=== PATIENT | female | born 1990 | race Caucasian/White ===

== ENCOUNTER 2024-01-13 19:04 | Inpatient (IN) | payer BC, SELFPAY ==
[2024-01-13] VITALS (9 sets, daily range): BP systolic 96–124; BP diastolic 50–81; PULSE 70–81; BMI 28.3; BMI 29.0
[2024-01-13 11:20] LABS: % Basophils 0.3 % (0-2); % Eosinophils 0.2 % (0-6); % Immature Granulocytes 0.9 % (0-0.5); % Monocytes 6.4 % (1.7-9.3); % Neutrophils 86.2 % (42.2-75.2); Absolute Basophils 0.1 10^3/uL (0-0.2); Absolute Immature Granulocytes 0.2 10^3/uL (0-0.05); Absolute Lymphocytes 1.5 10^3/uL (1.2-3.4); Absolute Monocytes 1.6 10^3/uL (0.1-0.6); Absolute Neutrophils 21.8 10^3/uL (1.4-6.5); Hematocrit 43.2 % (37.0-47.0); Hemoglobin 14.8 g/dL (12.0-16.0); Mean Corp Hgb Conc. 34.3 g/dL (33.0-37.0); Mean Corpuscular Volume 90.4 fL (81.0-99.0); Mean Platelet Volume 9.6 fL (7.4-10.4); Nucleated Red Blood Cells % 0 %; Platelet Count 330 10^3/uL (130-400); Red Blood Cell Count 4.78 10^6/uL (4.20-5.40); Red Cell Dist. Width 12.5 % (11.5-14.5); White Blood Cell Count 25.3 10^3/uL (4.8-10.8)
[2024-01-13 11:30] LABS: ALT (SGPT) 39 U/L (0-35); AST (SGOT) 51 U/L (14-36); Albumin 4.8 g/dl (3.5-5.0); Alkaline Phosphatase 57 U/L (38-126); Blood Urea Nitrogen 29 mg/dl (7-17); Calcium 9.3 mg/dl (8.4-10.2); Carbon Dioxide 23 mmol/L (22-30); Chloride 110 mmol/L (98-107); Estimated Creatinine Clearance 55 ml/min; Glucose 102 mg/dl (70-99); Potassium 4.3 mmol/L (3.5-5.1); Sodium 141 mmol/L (135-145); Total Bilirubin 0.7 mg/dl (0.2-1.3); Total Protein 7.3 g/dl (6.3-8.2); eGFR > 60.00
--- NOTE | 2024-01-13 12:02 | ED.GENMED ---
History of Present Illness
<Winifred Armas PA-C - Last Filed: 01/13/24 18:32>
General
Chief Complaint: Fainting Sensation
Source: patient
Exam Limitations: none
Time Seen by Provider: 01/13/24 11:29
Nursing documentation reviewed up to this point in time: agreed with
Travel History
Have you had any contact with someone who has COVID-19?: No
Do you have any symptoms of coronavirus? Fever > 100 degrees, chills, cough, shortness of breath, sore throat, loss of taste or smell, muscle aches, or headache?: No
History of Present Illness
History of Present Illness:
pt is a 33 y/o F with h/o anxiety on wellbutrin, cut back from 300 to 250 recently
was running 10th mile of half marathon and started feeling lightheaded, weak, faint, and got on the ground on all fours, she felt funny and was sweaty and ultimately then woke up in the ambulance;
pt has never passed out before
has seen cards about 4 years ago because mom had bypass at aghe 58
she had normal echo
pt is a distance runner
ate breakfast before the race, was hydrated with water and electrolytes
but she did use 3 'run gum' tabs which total 450 mg of caffeine and she has never used 3 before
pt did not hit her head
pt currently is feeling nauseated and having lower back pain
she never had chest pain, no pleuritic pain, abdominal pain
no h/o dvt/pe
no ocps
Past History
<Winifred Armas PA-C - Last Filed: 01/13/24 18:32>
Past History
ED Past Medical History: Psychiatric
ED Past Surgical History: Cholecystectomy
Social History
Tobacco: Non-smoker
Alcohol: None
Drug: None
Personal:
Living: with family
Family History
Family History: CAD
Review of Systems
<Winifred Armas PA-C - Last Filed: 01/13/24 18:32>
Review of Systems
Allergies reviewed?: Yes
All Other Systems: Not applicable
Phy Exam
<Winifred Armas PA-C - Last Filed: 01/13/24 18:32>
Physical Exam
Physical Exam:
GENERAL: Alert , in no apparent distress
EYE: pupils equal and reactive
NECK: Supple
ENT: o/p clr, mmm.
CARDIAC: Regular rate and rhythm .
LUNGS: Clear breath sounds bilaterally, no acute respiratory distress, no wheezes/rales/rhonchi
ABDOMEN: Soft, without focal tenderness, no r/g, no cvat, normal bowel sounds
NEUROLOGICAL: Alert and oriented, no focal neuro deficits
SKIN: Warm and dry, skin intact.
MUSCULOSKELETAL: No edema, well perfused. neg misael's sign
PSYCH: Normal and appropriate interaction.
Course
<Winifred Armas PA-C - Last Filed: 01/13/24 18:32>
Orders/Labs/Results
Orders:
Orders
01/13/24 11:04
Electrocardiogram (*1) Urgent
Reason for Study: Chest Pain
EKG- Treatment ONCE
01/13/24 11:12
Complete Blood Count/With Diff Urgent
Comprehensive Metabolic Panel Urgent
Creatine Phosphokinase Urgent
HCG, Serum Qualitative Screen Urgent
Troponin I Urgent
01/13/24 11:57
0.9% Sodium Chloride 1000 ml [Nss] 1,000 ml IV BOLUS
01/13/24 11:58
Add On- LAB Urgent
Tests Added?: cpk
Add On- LAB Urgent
Tests Added?: hcg qual serum
01/13/24 12:13
D-Dimer Urgent
01/13/24 12:37
Orthostatic VS- Treatment ONCE
01/13/24 12:53
CT Chest Pe Study Urgent
Comment:
Reason For Exam: elevated d dimer, syncope, eleavted
01/13/24 13:33
0.9% Sodium Chloride 1000 ml [Nss] 1,000 ml IV BOLUS
01/13/24 Dinner
Cholesterol Lowering
At Your Request: Full Participation
Cholesterol Lowering: Sodium, 2 Gram
01/13/24 15:20
Complete Blood Count/With Diff Urgent
Comprehensive Metabolic Panel Urgent
Glycohemoglobin (HgbA1c) Urgent
Troponin I Urgent
01/13/24 16:49
Electrocardiogram (*1) Urgent
Reason for Study: Palpitations
EKG- Treatment ONCE
01/13/24 18:19
Admit/Transfer Patient As Directed
Co-Sign Provider:
Level of Care: Inpatient admission
Assign to:: Telemetry
Physician / Group: Hospitalist
Diagnosis: Syncopal episode, elevated troponin
Reason for Telemetry: Syncope
Date to Stop Telemetry: 01/15/24
Time to Stop Telemetry: 11:00
Reason for Hospitalization: Syncopal episode, elevated troponin
Expected length of stay greater than two midnights?: Yes
ELOS- Estimated Length of Stay in days: 2
I certify the patient meets the requirements for IP care: Yes
01/13/24 18:20
Code Status As Directed
Resuscitation Status: Full Code
01/13/24 19:31
Electrocardiogram (*1) Q6H
Reason for Study: Chest Pain
Comment: at admission and Q3H for total of 3, to be done with each troponin
0.9% Sodium Chloride 1000 ml [Nss] 1,000 ml IV 150 mls/hr
01/13/24 19:31
Echo 2D MMode Color/Doppler Routine
Reason for Study: chest pain
Activity As Directed
Activity Level: Ambulate
INT (Intravenous Needle Therapy) As Directed
Comment: maintain peripheral IV access
Intake/ Output As Directed
Frequency: Per unit guidelines
Pneumatic Compression Sleeves As Directed
Type: Knee high
Vital Signs As Directed
Frequency: q4h
Weight As Directed
Frequency: Daily
DX Deep Vein Thrombosis Video Routine
01/13/24 19:53
Troponin I Q3H
Comment: at admit & Q3H for 3 total including ED draws, obtain ECG with each level
01/14/24 01:31
Electrocardiogram (*1) Q6H
Reason for Study: Chest Pain
Comment: at admission and Q3H for total of 3, to be done with each troponin
01/14/24 05:25
Complete Blood Count/No Diff IN AM
Comprehensive Metabolic Panel IN AM
01/14/24 07:31
Electrocardiogram (*1) Q6H
Reason for Study: Chest Pain
Comment: at admission and Q3H for total of 3, to be done with each troponin
01/14/24 08:00
Bupropion(24Hr)Extended Releas [WELLBUTRIN XL (24 hour extended release)] 300 mg PO DAILY
Famotidine [Pepcid] 40 mg PO DAILY
01/15/24 11:00
DC Protocol for Telemetry ONCE
Abnormal Lab Results
01/13/24 01/13/24 01/13/24
11:12 12:13 15:20
WBC 25.3 H 10^3/uL 18.6 H 10^3/uL
(4.8-10.8) (4.8-10.8)
RBC 3.96 L 10^6/uL
(4.20-5.40)
Hct 35.6 L %
(37.0-47.0)
MCH 31.6 H pg
(27.0-31.0)
Abs Immat Gran (auto) 0.2 H 10^3/uL 0.1 H 10^3/uL
(0-0.05) (0-0.05)
Absolute Neuts (auto) 21.8 H 10^3/uL 16.3 H 10^3/uL
(1.4-6.5) (1.4-6.5)
Absolute Monos (auto) 1.6 H 10^3/uL 0.7 H 10^3/uL
(0.1-0.6) (0.1-0.6)
Immature Gran % 0.9 H %
(0-0.5)
Neutrophils % 86.2 H % 87.6 H %
(42.2-75.2) (42.2-75.2)
Lymphocytes % 6.0 L % 7.9 L %
(20.5-51.1) (20.5-51.1)
D-Dimer 0.60 H ug/mlFEU
(0.00-0.50)
Chloride 110 H mmol/L 113 H mmol/L
(98-107) (98-107)
Carbon Dioxide 21 L mmol/L
(22-30)
BUN 29 H mg/dl 25 H mg/dl
(7-17) (7-17)
Creatinine 1.2 H mg/dL
(0.6-1.0)
Glucose 102 H mg/dl 107 H mg/dl
(70-99) (70-99)
Calcium 8.1 L mg/dl
(8.4-10.2)
AST 51 H U/L 92 H U/L
(14-36) (14-36)
ALT 39 H U/L 73 H U/L
(0-35) (0-35)
Troponin I 0.120 H* ng/ml 0.135 H* ng/ml
Total Protein 5.9 L g/dl
(6.3-8.2)
01/13/24 15:20
01/13/24 15:20
Vital Signs
Initial and Last Documented VS:
Initial Vital Signs
Temp Pulse Resp BP Pulse Ox
98.4 F 94 20 124/81 100
01/13/24 11:00 01/13/24 11:00 01/13/24 11:00 01/13/24 11:00 01/13/24 11:00
Last Documented Vital Signs
Temp Pulse Resp BP Pulse Ox
98.4 F 58 17 96/52 99
01/14/24 03:20 01/14/24 03:20 01/14/24 03:20 01/14/24 03:20 01/14/24 03:20
<Pernell Noe MD - Last Filed: 01/14/24 07:47>
Orders/Labs/Results
Orders:
Orders
01/13/24 11:04
Electrocardiogram (*1) Urgent
Reason for Study: Chest Pain
EKG- Treatment ONCE
01/13/24 11:12
Complete Blood Count/With Diff Urgent
Comprehensive Metabolic Panel Urgent
Creatine Phosphokinase Urgent
HCG, Serum Qualitative Screen Urgent
Troponin I Urgent
01/13/24 11:57
0.9% Sodium Chloride 1000 ml [Nss] 1,000 ml IV BOLUS
01/13/24 11:58
Add On- LAB Urgent
Tests Added?: cpk
Add On- LAB Urgent
Tests Added?: hcg qual serum
01/13/24 12:13
D-Dimer Urgent
01/13/24 12:37
Orthostatic VS- Treatment ONCE
01/13/24 12:53
CT Chest Pe Study Urgent
Comment:
Reason For Exam: elevated d dimer, syncope, eleavted
01/13/24 13:33
0.9% Sodium Chloride 1000 ml [Nss] 1,000 ml IV BOLUS
01/13/24 Dinner
Cholesterol Lowering
At Your Request: Full Participation
Cholesterol Lowering: Sodium, 2 Gram
01/13/24 15:20
Complete Blood Count/With Diff Urgent
Comprehensive Metabolic Panel Urgent
Glycohemoglobin (HgbA1c) Urgent
Troponin I Urgent
01/13/24 16:49
Electrocardiogram (*1) Urgent
Reason for Study: Palpitations
EKG- Treatment ONCE
01/13/24 18:19
Admit/Transfer Patient As Directed
Co-Sign Provider:
Level of Care: Inpatient admission
Assign to:: Telemetry
Physician / Group: Hospitalist
Diagnosis: Syncopal episode, elevated troponin
Reason for Telemetry: Syncope
Date to Stop Telemetry: 01/15/24
Time to Stop Telemetry: 11:00
Reason for Hospitalization: Syncopal episode, elevated troponin
Expected length of stay greater than two midnights?: Yes
ELOS- Estimated Length of Stay in days: 2
I certify the patient meets the requirements for IP care: Yes
01/13/24 18:20
Code Status As Directed
Resuscitation Status: Full Code
01/13/24 19:31
Electrocardiogram (*1) Q6H
Reason for Study: Chest Pain
Comment: at admission and Q3H for total of 3, to be done with each troponin
0.9% Sodium Chloride 1000 ml [Nss] 1,000 ml IV 150 mls/hr
01/13/24 19:31
Echo 2D MMode Color/Doppler Routine
Reason for Study: chest pain
Activity As Directed
Activity Level: Ambulate
INT (Intravenous Needle Therapy) As Directed
Comment: maintain peripheral IV access
Intake/ Output As Directed
Frequency: Per unit guidelines
Pneumatic Compression Sleeves As Directed
Type: Knee high
Vital Signs As Directed
Frequency: q4h
Weight As Directed
Frequency: Daily
DX Deep Vein Thrombosis Video Routine
01/13/24 19:53
Troponin I Q3H
Comment: at admit & Q3H for 3 total including ED draws, obtain ECG with each level
01/14/24 01:31
Electrocardiogram (*1) Q6H
Reason for Study: Chest Pain
Comment: at admission and Q3H for total of 3, to be done with each troponin
01/14/24 05:25
Complete Blood Count/No Diff IN AM
Comprehensive Metabolic Panel IN AM
01/14/24 07:31
Electrocardiogram (*1) Q6H
Reason for Study: Chest Pain
Comment: at admission and Q3H for total of 3, to be done with each troponin
01/14/24 08:00
Bupropion(24Hr)Extended Releas [WELLBUTRIN XL (24 hour extended release)] 300 mg PO DAILY
Famotidine [Pepcid] 40 mg PO DAILY
01/15/24 11:00
DC Protocol for Telemetry ONCE
Abnormal Lab Results
01/13/24 01/13/24 01/13/24
11:12 12:13 15:20
WBC 25.3 H 10^3/uL 18.6 H 10^3/uL
(4.8-10.8) (4.8-10.8)
RBC 3.96 L 10^6/uL
(4.20-5.40)
Hct 35.6 L %
(37.0-47.0)
MCH 31.6 H pg
(27.0-31.0)
Abs Immat Gran (auto) 0.2 H 10^3/uL 0.1 H 10^3/uL
(0-0.05) (0-0.05)
Absolute Neuts (auto) 21.8 H 10^3/uL 16.3 H 10^3/uL
(1.4-6.5) (1.4-6.5)
Absolute Monos (auto) 1.6 H 10^3/uL 0.7 H 10^3/uL
(0.1-0.6) (0.1-0.6)
Immature Gran % 0.9 H %
(0-0.5)
Neutrophils % 86.2 H % 87.6 H %
(42.2-75.2) (42.2-75.2)
Lymphocytes % 6.0 L % 7.9 L %
(20.5-51.1) (20.5-51.1)
D-Dimer 0.60 H ug/mlFEU
(0.00-0.50)
Chloride 110 H mmol/L 113 H mmol/L
(98-107) (98-107)
Carbon Dioxide 21 L mmol/L
(22-30)
BUN 29 H mg/dl 25 H mg/dl
(7-17) (7-17)
Creatinine 1.2 H mg/dL
(0.6-1.0)
Glucose 102 H mg/dl 107 H mg/dl
(70-99) (70-99)
Calcium 8.1 L mg/dl
(8.4-10.2)
AST 51 H U/L 92 H U/L
(14-36) (14-36)
ALT 39 H U/L 73 H U/L
(0-35) (0-35)
Troponin I 0.120 H* ng/ml 0.135 H* ng/ml
Total Protein 5.9 L g/dl
(6.3-8.2)
01/13/24 15:20
01/13/24 15:20
Vital Signs
Initial and Last Documented VS:
Initial Vital Signs
Temp Pulse Resp BP Pulse Ox
98.4 F 94 20 124/81 100
01/13/24 11:00 01/13/24 11:00 01/13/24 11:00 01/13/24 11:00 01/13/24 11:00
Last Documented Vital Signs
Temp Pulse Resp BP Pulse Ox
98.4 F 58 17 96/52 99
01/14/24 03:20 01/14/24 03:20 01/14/24 03:20 01/14/24 03:20 01/14/24 03:20
<Winifred Armas PA-C - Last Filed: 01/13/24 18:32>
MDM/Problems Addressed
Differential Diagnosis Includes:
sycnope, dysrhthmia, caffeine overdose, PE,
MDM/Problems Addressed:
33 y/o F h/o anxiety; was running 10 of 13.1 miles today, used caffeine gum (450 mg total) and then had syncope; was not tachy here, well appearing, no chest pain; felt lightheaded, sweaty, sob before the syncope, got to the ground and then woke up
in the ambulance;
labs were pretty abnormal initally, wbc 26, cr 1.2, and trop 0.12; ekg nonischemic;
d dimer + --> CT NEG
repeated labs after hyrration and trop 0.13;
d/w maryann digital experience manager who recommended tele overnight, trend trops and likely they will echo tomorrow
cpk normal
<Winifred Armas PA-C - Last Filed: 01/13/24 18:32>
*Critical Care Note
Total Time (30-74mins, 75-104mins- exclusive of procedures): Not Applicable
ED Attending Note
<Winifred Armas PA-C - Last Filed: 01/13/24 18:32>
-
Portions of this chart may have been created with voice recognition software.� Occasional wrong word or��sound alike� substitutions may have occurred due to the inherent limitations of voice recognition software.
<Pernell Noe MD - Last Filed: 01/14/24 07:47>
ED Attending Note
Patient seen and examined by attending physician: Yes
ED Attending Note:
Patient with history of anxiety disorder on Wellbutrin, presents to ED after syncopal episode while completing marathon this morning. Patient states she was running in next event is when she is in the ambulance lying on the stretcher. However
shortly afterwards, patient recalls pulling over to the side while running and sitting down with sensation of feeling hot in her feet as well as her chest. At the time of evaluation ED, patient is without any complaints. Denies chest pain or chest
palpitations. Denies shortness of breath. Denies nausea or vomiting. Denies fever. Denies recent illness. Denies recent travel or surgery. Denies previous history of similar symptoms. Of note, patient reports taking extra caffeine gum prior
to her race, which she has not done previously.
Physical Exam
General: no apparent distress, not acutely ill. afebrile.
Head: nc/at. eomi
Neck: supple. normal range of motion.
Heart: s1/s2 regular rate and rhythm, no murmur. equal radial pulses.
Lungs: no acute respiratory distress. clear bilaterally
Abdomen: normal bowel sounds. not tender.
Neuro: alert and oriented. no focal neurological deficits
Skin: no rash
Psychiatric: well kept. interactive and cooperative
Extremities: no edema. no calf tenderness.
D-dimer noted and CTA PE study ordered - no PE.
Mildly elevated troponin noted, without chest pain. Discussed with on-call digital experience manager, Dr. Zapien, who recommends patient to be admitted for further evaluation and treatment.
Discharge Plan
Departure
Patient Disposition: Admit
Date of Disposition: 01/13/24
Time of Disposition: 16:38
Admit to: Telemetry
Presentation/result/management discussed w/ accepting MD/DO: Hospitalist
Condition: Fair
Covid-19: Not Applicable
Discharge Problem:
Syncope, vasovagal
Interventions
Interventions:
*Risk Screen - Suicide Last Done: 01/13/24 11:00
*General Assessment Last Done: 01/13/24 12:21
*Neglect/Abuse Screening Last Done: 01/13/24 12:21
ED- Fall Risk Assessment Last Done: 01/13/24 12:23
*ED COVID-19 Vaccine History Last Done: 01/13/24 11:00
*Nursing Disposition Last Done: 01/13/24 19:31
ED- Cardiac Assessment Last Done: 01/13/24 12:23
ED- Neurological Assessment Last Done: 01/13/24 12:23
Discharge Date and Time
Discharge Date/Time: 01/13/24 19:31
[2024-01-13] MEDS: NSS 1000 IV ×3 (12:14→20:35)
[2024-01-13 12:42] LABS: HCG, Serum Qualitative Screen Negative
[2024-01-13 12:49] LABS: Creatine Phosphokinase 127 U/L (30-135)
[2024-01-13 15:31] LABS: % Basophils 0.2 % (0-2); % Immature Granulocytes 0.5 % (0-0.5); % Lymphocytes 7.9 % (20.5-51.1); % Monocytes 3.8 % (1.7-9.3); % Neutrophils 87.6 % (42.2-75.2); Absolute Immature Granulocytes 0.1 10^3/uL (0-0.05); Absolute Lymphocytes 1.5 10^3/uL (1.2-3.4); Absolute Monocytes 0.7 10^3/uL (0.1-0.6); Absolute Neutrophils 16.3 10^3/uL (1.4-6.5); Hematocrit 35.6 % (37.0-47.0); Hemoglobin 12.5 g/dL (12.0-16.0); Mean Corp Hgb Conc. 35.1 g/dL (33.0-37.0); Mean Corpuscular Hgb 31.6 pg (27.0-31.0); Mean Corpuscular Volume 89.9 fL (81.0-99.0); Mean Platelet Volume 9.6 fL (7.4-10.4); Nucleated Red Blood Cells % 0 %; Platelet Count 255 10^3/uL (130-400); Red Blood Cell Count 3.96 10^6/uL (4.20-5.40); Red Cell Dist. Width 12.5 % (11.5-14.5); White Blood Cell Count 18.6 10^3/uL (4.8-10.8)
[2024-01-13 15:45] LABS: ALT (SGPT) 73 U/L (0-35); AST (SGOT) 92 U/L (14-36); Albumin 3.6 g/dl (3.5-5.0); Alkaline Phosphatase 44 U/L (38-126); Blood Urea Nitrogen 25 mg/dl (7-17); Calcium 8.1 mg/dl (8.4-10.2); Carbon Dioxide 21 mmol/L (22-30); Chloride 113 mmol/L (98-107); Estimated Creatinine Clearance 74 ml/min; Glucose 107 mg/dl (70-99); Potassium 4.6 mmol/L (3.5-5.1); Sodium 136 mmol/L (135-145); Total Bilirubin 0.7 mg/dl (0.2-1.3); Total Protein 5.9 g/dl (6.3-8.2); eGFR > 60.00
[2024-01-13 15:57] LABS: Troponin I 0.135 ng/ml
--- NOTE | 2024-01-13 16:36 | CON.CAR ---
Consultation
Consultation Request
Date/Time Consultation Requested: 01/13/2024 at 1600
Date/Time Consultation Performed: 01/13/2024 1630
Requesting Provider: Emergency department, Winifred WEAVER
Performing Provider: Dr. Zapien
Reason for Consultation: Syncope
Medical History
-
History of Present Illness:
33-year-old woman who presents with syncope.
Patient was running a half marathon and was tired trying to complete it under 2 hours. She says she was on pace and that the ninth mile she felt like she was getting tired and took a second caffeine gum. She thinks in total she had 3 of these gums
with a total of 150 mg of caffeine. She said she later just did not feel well and felt exhausted and had to walk and really felt worse and had to stop. She then felt hot and took her shoes off and then ultimately had a syncopal episode. No
complaints of chest pain no clear reports of heart racing. She was wearing an Apple Watch but she did not have any additional alarms on her watch. She will be trying to see if she can pull any data off her watch. Patient has been evaluated in
the ER blood pressure and heart rate have been stable ECG shows normal sinus rhythm
She states she is run a half marathon before. Last 1 was in the fall. She had no issues with that raise. She has not had other recent episodes of syncope or its near syncope. She states she had 1 episode of syncope many years ago and then she
was in college at the time she says she was not feeling well and was in the bathroom she also thinks it may have had to do with her menstrual cycle and she had a syncopal episode in the bathroom. She was evaluated and it sounds as if it was a
suspected vagal episode.
Her mother had premature coronary disease at age 60 patient states that her mom had a maker patient had an evaluation with a chicken picker but it does not appear that she had an echocardiogram. She does say that she had some genetic testing
that was abnormal but there was nothing to do about it. Details unclear
Labs notable for initial white blood cell count of 25.3 D-dimer 0.6 creatinine 1.2 BUN 29 troponin 0.12 and 0.135. hCG negative. Patient's had follow-up labs which show creatinine down to 0.9 after IV fluids.
No arrhythmias reported on telemetry
ECG tracing reviewed sinus rhythm 83 bpm. QTc 441. Late transition of R wave
Past Medical History
Past Medical History: Other
Social History
Tobacco: Non-Smoker
Family History
Family History: CAD
Allergies / Home Medications
Allergy/AdvReac Type Severity Reaction Status Date / Time
Sulfa (Sulfonamide Allergy Unknown Verified 01/13/24 11:10
Antibiotics)
�Medication �Instructions �Recorded �Confirmed �Type
bupropion HCl 300 mg 24 hr tablet, 300 mg PO DAILY 01/13/24 01/13/24 History
extended release (Wellbutrin XL)
famotidine 40 mg tablet (Pepcid) 40 mg PO DAILY 01/13/24 01/13/24 History
Review of Systems
-
All other systems: Negative unless noted
Physical Exam
Vital Signs
Temp Pulse Resp BP Pulse Ox
98.4 F 81 30 112/74 100
01/13/24 11:00 01/13/24 13:30 01/13/24 13:30 01/13/24 13:18 01/13/24 16:15
Lab Results
01/13/24 15:20
01/13/24 15:20
Troponin I 0.135 ng/ml H* 01/13/24 15:20
Physical Exam
General: Well Developed, Well Nourished and No Apparent Distress
HEENT: Normocephalic, Anicteric and Moist Mucous Membranes
Respiratory: Clear
Cardiac: Regular Rhythm
GI: Soft, Non Tender, Non Distended and Normal Bowel Sounds
Musculoskeletal: No Clubbing and No Cyanosis
Skin: Warm, Dry and Rash (None)
Neuro: Awake, Alert and Oriented
Hematologic/Lymphatic: No Lymphadenopathy
Psych: Calm
Impression / Plan
-
.
Syncope. Occurred in setting of patient running a half marathon.. Patient stopped because she was not feeling well and then had episode of syncope. Exact etiology unclear. Multiple factors may contribute including volume depletion, heat,
vasodilation post exercise and possible vagal episode after ingesting Gummies. Arrhythmia cannot entirely be excluded.
-Hydration
-Additional observation
-Monitor on telemetry
-Echocardiogram in a.m.
.
Abnormal troponin.
- elevations have been reported in prolonged strenuous exercise. This along with lower BP with syncope may both explain the troponin.
-Serial troponins
-Evaluation as noted above
Data Reviewed
-
EKG: Tracing Personally Visualized and interpreted and Report Reviewed by me
Radiology: Report Reviewed by me
Medical Tests (Nuc Med, Echo etc): Report Reviewed by me
Labs: Labs Reviewed by me
--- NOTE | 2024-01-13 18:07 | HPS.HSE ---
Family Physician
-
Family Physician: Berkley Ocasio, DO
Chief Complaint
-
Syncope
History of Present Illness
33 y/o woman with h/o anxiety (on wellbutrin), was running the 10th mile of half marathon and started feeling lightheaded, weak, faint, and lowered herself to the ground on all fours, she remembers feeling 'funny' and was sweaty and then woke up in
the ambulance. She believes that she has never passed out before. she had normal echo 6 months ago (mom had CAD). she is a trained distance runner and she ate breakfast before the race. She was hydrated with water and electrolytes. She did eat
3 'run gummies' tabs which total 150 mg of caffeine. She usually eats only 50 mg. This was more than usual for her. she never had chest pain, no pleuritic pain, abdominal pain. no h/o dvt/pe. no ocps. At the time of my interview she felt well
and had no complaints.
Medical History
Past Medical History
Past Medical History: Reports Other
Additional Past Medical History:
Anxiety d/o
s/p Cholecystectomy
GERD
Past Surgical History: Reports Other
Additional Past Surgical History:
See above
Social History
Tobacco: Non-smoker
Alcohol: None
Drug: None
Employment: Employed
Family History
Family History: Not pertinent
Allergies / Home Medications
Allergies reflects when Allergies were last updated in [facility].
Home Medications with original date entered in [facility]
Allergy/Medication List:
Allergies
Allergy/AdvReac Type Severity Reaction Status Date / Time
Sulfa (Sulfonamide Allergy Unknown Verified 01/13/24 11:10
Antibiotics)
Home Medications
bupropion HCl 300 mg 24 hr tablet, extended release (Wellbutrin XL) 300 mg PO DAILY 01/13/24
famotidine 40 mg tablet (Pepcid) 40 mg PO DAILY 01/13/24
Review of Systems
-
History Source: Patient
A 12 point ROS was completed and negative except as noted: Yes
Physical Exam
Vital Signs
Vital Signs
Temp Pulse Resp BP Pulse Ox
98.4 F 81 30 112/74 100
01/13/24 11:00 01/13/24 13:30 01/13/24 13:30 01/13/24 13:18 01/13/24 16:15
Physical Exam
General: Well Developed, Well Nourished, No Apparent Distress, Comfortable and Conversant
HEENT: NormoCephalic, Moist mucous membranes, Atraumatic, [place] Conjunctivae, No Ptosis, Nose Appears Normal and Ears Appear Normal
Respiratory: Clear
Cardiac: S1/S2 and Regular Rhythm
GI: Soft, Non Tender and Non Distended
Musculoskeletal: No Clubbing, No Cyanosis and No Edema
Skin: Warm and Dry; No Rash or Jaundice
Neuro: Awake, Alert, Oriented and AO x 3
Psych: Calm
Laboratory Results
-
01/13/24 15:20
01/13/24 15:20
Laboratory Results
Total Bilirubin 0.7 mg/dl (0.2-1.3) 01/13/24 15:20
AST 92 U/L (14-36) H 01/13/24 15:20
ALT 73 U/L (0-35) H 01/13/24 15:20
Alkaline Phosphatase 44 U/L (38-126) 01/13/24 15:20
Troponin I 0.135 ng/ml H* 01/13/24 15:20
Data Reviewed
-
Lab Data: Labs Reviewed by me
Impression/Plan
-
IMPRESSION:
33 woman had syncopal episode while running a /2 marathon. Notable findings
WBC 18.6
D-dimer 0.60, chest CT (-) for PE
BUN/Creat 25/0.9
ALT/AST 92/73
Troponin 0.135
PLAN:
1. SYncope with elevated troponin. Complicated by extra caffeine and dehydration while performing strenuous exercise.
Hydrate
Telemetry
Avoid further caffeine
YI
Echo in am
2. Dehydration with BUN/Creat > 20, and recent dye from CT
IV saline
Recheck renal function in am
3. Elevated AST/ALT - may be from low volume state
Hydrate
Recheck in am
4. WBC of 18.6, likely stress reaction. No source of infection
Recheck in am
No antibiotics given
Full code
VCD for DVTP
--- NOTE | 2024-01-13 20:00 | PTCARENOTE ---
Patient arrived via stretcher accompanied by ED PCT, ambulated to bed without difficulty. Nursing assessment completed and as documented. Oriented to facility/room, call shahid within reach, care ongoing.
[2024-01-13 20:45] LABS: Troponin I 0.081 ng/ml
[2024-01-13] MEDS: TYLENOL 650 MG PO (20:54)
[2024-01-14] MEDS: NSS 1000 IV (02:27)
[2024-01-14 03:20] VITALS: BP 96/52
[2024-01-14 06:00] VITALS: BMI 29.3
[2024-01-14 06:18] LABS: Hematocrit 34.2 % (37.0-47.0); Hemoglobin 11.6 g/dL (12.0-16.0); Mean Corp Hgb Conc. 33.9 g/dL (33.0-37.0); Mean Corpuscular Hgb 31.5 pg (27.0-31.0); Mean Corpuscular Volume 92.9 fL (81.0-99.0); Mean Platelet Volume 10.3 fL (7.4-10.4); Platelet Count 211 10^3/uL (130-400); Red Blood Cell Count 3.68 10^6/uL (4.20-5.40); Red Cell Dist. Width 12.8 % (11.5-14.5); White Blood Cell Count 9.3 10^3/uL (4.8-10.8)
--- NOTE | 2024-01-14 06:34 | W.PN.HOSP.TC ---
Today's Communication/Plan
-
As per Cardio, discharge after 2PM provided patient continues to feel well.
Assessment / Plan
Assessment / Plan
Physical Exam
General: No acute distress, appears comfortable at this time
HEENT: NormoCephalic, Moist mucous membranes, Atraumatic, PERRLA
Respiratory: Clear
Cardiac: S1/S2 Sinus [place]
GI: Soft, Non Tender and Non Distended
Musculoskeletal: No Clubbing, No Cyanosis and No Edema
Skin: Warm and Dry; No Rash or Jaundice noted
Neuro: AOx3
Psych: Calm
33 woman had syncopal episode while running a 1/2 marathon and ingesting 3 caffeine gummies over the course of her run (usually only uses 1 per race). ED eval notable for white count elevation, mild d-dimer elevation, mild transaminitis, and
troponin elevation without chest pain or significant EKG changes. Family hx mother with coronary artery disease diagnosed in her early 60s.
PLAN:
1. SYncope with elevated troponin. Complicated by extra caffeine and dehydration while performing strenuous exercise.
Completed IVF hydration
Telemetry
limit caffeine use
Echo appreciated ED 55-60% no significant valvular disease.
Cardio eval appreciated
-stable for discharge after 2PM if pt continues to feel well
-outpt cardio follow up for stress test and terminal worker outpatient cardiac monitoring 2 wk [facility]OT
2. Dehydration with BUN/Creat > 20, and recent dye from CT
resolved
IVF support completed
3. Mild transaminitis likely 2/2 dehydration as above
improving
outpatient follow up repeat labwork with primary recommended
4. WBC of 18.6, likely stress reactive
resolved without need for antbiotics
Full code
Total Time Preparing Discharge __50___ minutes including examination of the patient, summary of the hospital stay, instructions for continuing care to all relevant caregivers; and preparation of discharge records, prescriptions, and referral forms
if necessary.
Anticipated Discharge: Today
Subjective/Interval History
-
Date of Service: January 14, 2024
Seen and examined at bedside in no acute distress sitting up comfortably in bed. Reports lower ext soreness from recent long distance run but otherwise reports feeling well. Denies any new acute issues at this time. eager to go home.
Objective Data
-
Labs:
Laboratory Results
01/14/24
05:25
WBC 9.3
Hgb 11.6 L
Hct 34.2 L
Plt Count 211
Sodium Pending
Potassium Pending
Chloride Pending
Carbon Dioxide Pending
BUN Pending
Creatinine Pending
Glucose Pending
Calcium Pending
Total Bilirubin Pending
AST Pending
ALT Pending
Alkaline Phosphatase Pending
Vital Signs:
Vital Signs
Temp Pulse Resp BP Pulse Ox
98.4 F 58 17 96/52 99
01/14/24 03:20 01/14/24 03:20 01/14/24 03:20 01/14/24 03:20 01/14/24 03:20
I&O
01/12/24 01/13/24 01/14/24
06:59 06:59 06:59
Intake Total 1680 / 1680
Balance 1680 / 1680
[2024-01-14 06:43] LABS: ALT (SGPT) 70 U/L (0-35); AST (SGOT) 53 U/L (14-36); Alkaline Phosphatase 47 U/L (38-126); Blood Urea Nitrogen 14 mg/dl (7-17); Carbon Dioxide 23 mmol/L (22-30); Chloride 112 mmol/L (98-107); Estimated Creatinine Clearance 97 ml/min; Glucose 88 mg/dl (70-99); Potassium 3.6 mmol/L (3.5-5.1); Sodium 136 mmol/L (135-145); Total Bilirubin 0.6 mg/dl (0.2-1.3); Total Protein 5.2 g/dl (6.3-8.2); eGFR > 60.00
[2024-01-14 07:52] VITALS: BP 108/63
[2024-01-14] MEDS: WELLBUTRIN XL (24 hour extended release) 300 MG PO (09:50)
[2024-01-14] MEDS: NSS IV (10:11)
[2024-01-14 10:13] LABS: Glycohemoglobin (HgbA1c) 5.2 % (4.0-5.6)
--- NOTE | 2024-01-14 11:46 | W.PN.CD ---
Today's Communication / Plan
-
Patient appears stable for discharge after 2:00 provide the patient continues to feel well.
-Will arrange stress testing as an outpatient along with longer-term outpatient cardiac monitoring -2-week [facility]OT ordered
-My message office has been notified to make the above arrangements for her regarding testing and follow-up office visit
Impression / Plan
-
.
Syncope. Occurred in setting of patient running a half marathon.. Patient stopped because she was not feeling well and then had episode of syncope. Multiple factors may contribute including volume depletion, heat, vasodilation post exercise
and possible vagal episode after ingesting Gummies. Arrhythmia cannot entirely be excluded. Patient has normal left ventricular function and no arrhythmias on telemetry.
-Will arrange stress testing as an outpatient along with longer-term outpatient cardiac monitoring -2-week [facility]OT ordered
.
Abnormal troponin.
- elevations have been reported in prolonged strenuous exercise. This along with lower BP with syncope may both explain the troponin.
-Evaluation as noted above
Physical Exam
Vital Signs/Labs
Vital Signs
Temp Pulse Resp BP Pulse Ox
98.6 F 59 16 108/63 100
01/14/24 07:52 01/14/24 07:52 01/14/24 07:52 01/14/24 07:52 01/14/24 07:52
01/13/24 01/14/24 01/15/24
06:59 06:59 06:59
Actual Weight 67.993 kg
01/14/24 05:25
01/14/24 05:25
LAB Results
01/13/24 01/13/24 01/13/24
11:12 15:20 19:53
Troponin I 0.120 H* 0.135 H* 0.081 H* D
01/13/24 01/14/24
22:31 01:31
Troponin I Cancelled Cancelled
Physical Exam
Constitutional: No acute distress
Cardiovascular: Rhythm & rate is regular
Respiratory: Respiratory effort normal
GI: Soft
Neuro/Psych: Alert
Data Reviewed
-
Date of Service: January 14, 2024
Medical Decision Making: Reviewed Test Results
EKG: Report Reviewed by me
Medical Tests (PFT, Pathology etc): Report Reviewed by me
[2024-01-14 11:55] VITALS: BP 124/66
--- NOTE | 2024-01-14 13:27 | W.DCSUMMARY ---
Discharge Summary
Discharge Data
Date of Admission: 01/13/24
Date of Discharge: 01/14/24
-
Pending Results: No
Hospital Course
33F syncopal episode while running a 1/2 marathon and ingesting 3 caffeine gummies over the course of her run (usually only uses 1 per race). ED eval notable for white count elevation, mild d-dimer elevation, mild transaminitis, and troponin
elevation without chest pain or significant EKG changes. Family hx mother with coronary artery disease diagnosed in her early 60s. Syncope with elevated troponin. Complicated by extra caffeine and dehydration while performing strenuous exercise.
Completed IVF hydration. Echo appreciated EF 55-60% no significant valvular disease. Cardio eval and assessed stable for discharge, outpt cardio follow up for stress test and terminal manager outpatient cardiac monitoring 2 wk [facility]OT recommended. Mild
transaminitis likely 2/2 dehydration, improving, outpatient follow up repeat lab work with primary recommended. WBC 18.6, likely stress reactive resolved without need for antibiotics. Medically stable, patient was discharged home with outpatient
follow up recommendations.
Discharge Plan
-
Patient Disposition: Home (Routine Discharge)
Discharge Diagnosis/Procedures: Syncope, Abnormal Troponin Elevation, Dehydration, Caffeine Overuse, Mild Transaminitis possibly due to dehydration, Leukocytosis likely stress reactive (resolved)
Condition: Good
Diet: Regular
Activity: As tolerated
Additional Activity: Hold off on further running until outpatient cardio work up is complete or following clearance from Cardiology or Primary Care provider.
Driving Restrictions: As prior to admission
Bathing Restrictions: None
Blood Work: Please obtain CBC and CMP with primary care provider in 1 week of discharge.
Others Tests: Follow up with Cardiology for outpatient stress test and terminal manager playground monitor
Activity Restrictions/Additional Instructions:
Please follow up with primary care provider and Cardiology in 1 week of discharge.
Referrals:
Kenneth Zapien MD [Active] - in one week
Berkley Ocasio DO [Family Provider] - in one week
Prescriptions:
Continued
famotidine [Pepcid] 40 mg Tablet
40 mg PO DAILY
bupropion HCl [Wellbutrin XL] 300 mg Tablet Extended Release 24 Hr
300 mg PO DAILY
Discharge Orders:
Discharge Patient (As Directed); Ordered 01/14/24
Ordered By: Karla Dutta
Discharge Date and Time
Discharge Date/Time: 01/14/24 14:55
Print Language: AMHARIC
--- NOTE | 2024-01-14 14:47 | CM ---
Met with pt at bedside
Lives with and children in a 2 story home
Independent, driving, working
DME - none
SNF/HH - no past hx
Has ride at d/c
PCP - Dr Arden Ocasio
Pharm - [facility]
Plan - home no needs anticipated
== END 2024-01-14 14:55 | disposition home or self-care (01) | DRG 312 ==
LOC: 3 WEST ACU 19:04
PROVIDERS: Emergency Medicine; Physician Assistant; ADMITTING PHYSICIAN Internal Medicine; ATTENDING PHYSICIAN Internal Medicine; CONSULT PHYSICIAN Internal Medicine Cardiovascular Disease; EMERGENCY PHYSICIAN Emergency Medicine; FAMILY PHYSICIAN Family Medicine
DX: R55 Syncope and collapse (principal); E86.0 Dehydration; F41.9 Anxiety disorder, unspecified; I25.10 Atherosclerotic heart disease of native coronary artery without angina pectoris; K21.9 Gastro-esophageal reflux disease without esophagitis; R79.89 Other specified abnormal findings of blood chemistry; D72.829 Elevated white blood cell count, unspecified; R74.01 Elevation of levels of liver transaminase levels; Z90.49 Acquired absence of other specified parts of digestive tract; Z88.2 Allergy status to sulfonamides; Z82.49 Family history of ischemic heart disease and other diseases of the circulatory system
CPT/HCPCS: 71275; 80053; 82550; 83036; 84484; 84703; 85025; 85027; 85379; 93005; 93306; 96360; 99285; Q9967

== ENCOUNTER → 2024-01-19 06:49 | Outpatient (REF) | payer BC, SELFPAY | LOC: RCS 06:49 | PROVIDERS: ATTENDING PHYSICIAN Internal Medicine Cardiovascular Disease; FAMILY PHYSICIAN Family Medicine | DX: R89.9 Unspecified abnormal finding in specimens from other organs, systems and tissues (principal); R55 Syncope and collapse; R06.02 Shortness of breath; R07.89 Other chest pain | CPT/HCPCS: 78452; 93017; A9500 ==

== ENCOUNTER → 2024-01-26 09:44 | Outpatient (REF) | payer BC, SELFPAY | LOC: RAD 09:44 | PROVIDERS: ATTENDING PHYSICIAN Internal Medicine Cardiovascular Disease; FAMILY PHYSICIAN Family Medicine | DX: R94.39 Abnormal result of other cardiovascular function study (principal); R55 Syncope and collapse | CPT/HCPCS: 75574; Q9967 ==